=== PATIENT | female | born 1935 | race Caucasian/White ===

== ENCOUNTER 2019-11-22 23:03 | Emergency (ER) | payer MEDICARE, OTHER ==
[2019-11-22] MEDS ORDERED: Magnesium Citrate Solution 296 ML Bottle PO ONE (23:26)
--- NOTE | 2019-11-22 23:31 | EDM.PDOC ---
ED HPI GENERAL MEDICAL PROBLEM - General Chief Complaint: Gastrointestinal Problem Stated Complaint: CONSTIPATION Time Seen by Provider: 11/22/19 23:11 Source of Information: Reports: Patient, Family - History of Present Illness INITIAL COMMENTS - FREE TEXT/NARRATIVE: Pt constipated for 6 days No N/V/D No abdominal pain Has been having chronic issues with constipation for past month or more Has used laxatives in past Onset: Gradual Duration: Day(s): - Related Data Allergies Allergy/AdvReac Type Severity Reaction Status Date / Time No Known Allergies Allergy Verified 11/22/19 23:26 ED ROS GENERAL - Review of Systems Review Of Systems: See Below HEENT: Reports: No Symptoms Respiratory: Reports: No Symptoms Cardiovascular: Reports: No Symptoms GI/Abdominal: Reports: Constipation : Reports: No Symptoms ED EXAM, GI/ABD - Physical Exam Exam: See Below Exam Limited By: No Limitations General Appearance: No Apparent Distress Neck: Supple Respiratory/Chest: Lungs Clear Cardiovascular: Regular Rate, Rhythm GI/Abdominal Exam: Soft, Non-Tender, No Distention Course - Vital Signs Last Recorded V/S: Last Vital Signs Temp 36.9 C 11/22/19 23:06 Pulse 90 11/22/19 23:06 Resp 16 11/22/19 23:06 BP 174/66 H 11/22/19 23:06 Pulse Ox 96 11/22/19 23:06 - Orders/Labs/Meds Orders: Active Orders 24 hr Category Date Time Status Abdomen 2V AP Flat Upright [CR] Stat Exams 11/22/19 23:11 Ordered Magnesium Citrate [Citrate of Magnesia] Med 11/22/19 23:26 Once See Dose Instructions PO ONETIME ONE Meds: Medications Discontinued Medications Generic Name Dose Route Start Last Admin Trade Name Manjit PRN Reason Stop Dose Admin Mineral Oil 30 ml 11/22/19 23:26 Mineral Oil PO 11/22/19 23:27 ONETIME ONE - Re-Assessments/Exams Free Text/Narrative Re-Assessment/Exam: 11/22/19 23:29 Xray Increased stool throughout Pt given Mineral oil 30 cc and Mag Citrate in ER Departure - Departure Time of Disposition: 23:30 Disposition: Home, Self-Care 01 Clinical Impression: Constipation Qualifiers: Constipation type: unspecified constipation type Qualified Code(s): K59.00 - Constipation, unspecified - Discharge Information *PRESCRIPTION DRUG MONITORING PROGRAM REVIEWED*: Not Applicable *COPY OF PRESCRIPTION DRUG MONITORING REPORT IN PATIENT THERESA: Not Applicable Instructions: Constipation, Adult Referrals: PCP,Unknown [Primary Care Provider] - Additional Instructions: Laxatives as needed Follow up in clinic Mineral oil as needed Enemas as needed Sepsis Event Note - Evaluation Sepsis Screening Result: No Definite Risk - Focused Exam Vital Signs: Vital Signs Temp Pulse Resp BP Pulse Ox 11/22/19 23:06 36.9 C 90 16 174/66 H 96 Date Exam was Performed: 11/22/19 Time Exam was Performed: 23:27 - My Orders Last 24 Hours: My Active Orders 11/22/19 23:11 Abdomen 2V AP Flat Upright [CR] Stat 11/22/19 23:26 Magnesium Citrate [Citrate of Magnesia] See Dose Instructions PO ONETIME ONE - Assessment/Plan Last 24 Hours: My Active Orders 11/22/19 23:11 Abdomen 2V AP Flat Upright [CR] Stat 11/22/19 23:26 Magnesium Citrate [Citrate of Magnesia] See Dose Instructions PO ONETIME ONE
== END 2019-11-23 00:10 | disposition home or self-care (01) ==
LOC: LL.ED 23:03
DX: K59.00 Constipation, unspecified (principal)
CPT/HCPCS: 74019; 99283; 99283-25; A9270-GY

== ENCOUNTER 2024-08-18 13:45 | Emergency (ER) | payer MEDICARE, OTHER ==
[2024-08-18] MEDS ORDERED: Sodium Chloride 0.9% 10 ML Syringe FLUSH PRN (13:55)
[2024-08-18 14:01] LABS: BASOPHILS ABSOLUTE AUTO 0.03 K/uL (0.00-0.20); BASOPHILS PERCENT AUTO 0.3 % (0.0-2.0); EOSINOPHILS ABSOLUTE AUTO 0.19 K/uL (0.00-0.50); EOSINOPHILS PERCENT AUTO 1.7 % (0.0-5.0); HEMATOCRIT 38.4 % (34.0-46.0); HEMOGLOBIN 12.9 g/dL (11.7-15.5); LYMPHOCYTES ABSOLUTE AUTO 0.93 K/uL (0.50-3.50); LYMPHOCYTES PERCENT AUTO 8.2 % (10.0-50.0); MEAN CORPUSCULAR HEMOGLOBIN 29.1 pg (28.2-33.3); MEAN CORPUSCULAR HGB CONC 33.6 g/dL (31.7-36.0); MEAN CORPUSCULAR VOLUME 86.7 fL (84.0-98.0); MONOCYTES ABSOLUTE AUTO 1.27 K/uL (0.00-1.00); MONOCYTES PERCENT AUTO 11.2 % (2.0-14.0); NEUTROPHILS ABSOLUTE AUTO 8.94 K/uL (1.40-7.00); NEUTROPHILS PERCENT AUTO 78.6 % (45.0-80.0); PLATELET COUNT,PLT 325 K/uL (150-350); RED BLOOD CELL COUNT 4.43 M/uL (3.77-5.09); RED CELL DISTRIBUTION WIDTH 13.8 % (11.2-14.1); WHITE BLOOD CELL COUNT,WBC 11.4 K/uL (4.0-10.2)
[2024-08-18 14:28] LABS: LACTIC ACID 1.4 mmol/L (0.4-2.0)
[2024-08-18 14:29] LABS: BILIRUBIN TOTAL 0.4 mg/dL (0.2-1.0); CALCIUM 9.2 mg/dL (8.5-10.1); CARBON DIOXIDE,CO2 31.6 mmol/L (21.0-32.0); CREATININE 1.07 mg/dL (0.51-1.17); EST CRCL DRUG DOSING (CG) 25.6 mL/min; MAGNESIUM 1.7 mg/dL (1.8-2.4); POTASSIUM,K 3.4 mmol/L (3.5-5.1); PROTEIN TOTAL,TP 6.7 g/dL (6.4-8.2)
[2024-08-18 14:32] LABS: ANION GAP 8.8 meq/L (7-15)
[2024-08-18 15:00] LABS: PROTHROMBIN TIME 9.9 SEC (9.0-11.1)
== END 2024-08-18 16:34 ==
LOC: LL.ED 13:45 → SUPCPDRO 13:47 → LL.ED 16:34
DX: R29.818 Other symptoms and signs involving the nervous system (principal); E87.1 Hypo-osmolality and hyponatremia; I10 Essential (primary) hypertension; E78.00 Pure hypercholesterolemia, unspecified; Z90.49 Acquired absence of other specified parts of digestive tract; Z79.2 Long term (current) use of antibiotics; Z79.82 Long term (current) use of aspirin; Z79.899 Other long term (current) drug therapy; Z88.8 Allergy status to other drugs, medicaments and biological substances
CPT/HCPCS: 36415; 70450; 71045; 80053; 83605; 83735; 83880; 84484; 85025; 85379; 85610; 93005; 99285